=== PATIENT | female | born 1990 | race Caucasian/White ===

== ENCOUNTER 2017-09-21 06:47 | Inpatient (IN) | payer BC ==
[2017-09-21 07:50] VITALS: BMI 36.5
[2017-09-21] MEDS ORDERED: Ibuprofen 800 MG TAB PO PRN (08:48)
[2017-09-21] MEDS ORDERED: NS / Oxytocin 40 units/1000ml 1,000 ML IV PRN (08:48)
[2017-09-21] MEDS ORDERED: Lidocaine 1% (PF) 30 ML VIAL SC PRN (08:48)
[2017-09-21] MEDS ORDERED: HYDROcodone/Acetaminophen 5/325 mg Tablet PO PRN ×2 (08:48)
[2017-09-21] MEDS ORDERED: Ondansetron HCl/PF 4 MG/2 ML Vial IVP PRN ×2 (08:48→19:29)
[2017-09-21] MEDS ORDERED: Lactated Ringer's 1,000 ML IV SCH (09:00)
--- NOTE | 2017-09-21 09:04 | PDOC.LDHP ---
Labor and Delivery H&P Chief complaint: contractions HPI: Pt is a 27yo G1 @ 38.6 weeks who presents with regular contractions and cervical change from exam yesterday in the office. Current gestational age (weeks): 38 Due date: 09/29/17 Dating criteria: first trimester ultrasound Grav: 1 Para: 0 OB History Details: Femara and Metformin per ANI Current complications: other (baby in 80-90%tile) Abnormal US findings: Yes (80-90%tile) Current medications: pre- vitamins, other (Metformin 100mg QHS) Allergies/Adverse Reactions: Allergies Allergy/AdvReac Type Severity Reaction Status Date / Time Penicillins Allergy Intermediate Hives Verified 09/21/17 07:40 Social history: none - Physical Exam Vital signs reviewed and normal: yes General: breathing through contractions Heart: RRR Lungs: CTAB Extremeties: trace edema FHT: category 1 - Vaginal Exam cm dilated: 3 Effacement: 100% Station: -2 - OB Labs Blood type: O RH: negative Antibody Screen: negative HIV: negative RPR: negative HEPSAg: negative 1 hour GCT: positive 3 hour GTT: neg GBS: negative Urine drug screen: not done Rubella: immune - Assessment L&D Assessment: term patient in labor - Plan Plan: admit to L&D, labor augmentation if indicated, observation in L&D, informed consent obtained, anesthesia consult for pain management
[2017-09-21] MEDS ORDERED: DISCONTINUE ALL PREVIOUS NARCOTICS FS SCH (09:15)
[2017-09-21] MEDS ORDERED: Bupivacaine 0.5% 20 ML, fentaNYL Citrate/PF 400 MCG in Sodium Chloride 0.9% 72 ML EPIDURAL SCH (09:15)
[2017-09-21 09:57] LABS: Hemoglobin 13.1 g/dL (12.0-16.0); Mean Corpuscular HGB CONC 32.6 g/dL (32.0-36.0); Mean Corpuscular Hemoglobin 27.6 pg (27.0-31.0); Mean Corpuscular Volume 84.4 fl (81.0-99.0); Mean Platelet Volume 10.7 fL (7.4-10.4); Platelet Count 155 thou/uL (130-400); RBC Distribution Width 18.9 % (11.5-14.5); Red Blood Cell (RBC) Count 4.74 mill/uL (4.20-5.40); White Blood Cell (WBC) Count 10.1 thou/uL (4.8-10.8)
[2017-09-21 10:39] LABS: HBSAg Index 0.18 S/CO (0-0.99); Hep B Surf Ag Non-Reactive S/CO (NonReactive); Syphilis Antibody Nonreactive (Nonreactive)
[2017-09-21] MEDS ORDERED: diphenhydrAMINE 50 MG/ML VIAL IVP PRN (10:48)
[2017-09-21] MEDS ORDERED: Naloxone HCl 0.4 mg/ml Vial IVP PRN ×2 (10:48)
[2017-09-21] MEDS ORDERED: Eucerin (Mineral Oil/Petrolatum,White) 30 gm Jar TOP PRN (10:48)
[2017-09-21] MEDS ORDERED: Lactated Ringer's 500 ML IV PRN (10:48)
[2017-09-21] MEDS ORDERED: ePHEDrine/0.9% NaCl/PF SYRINGE 50 mg/10 ml SLOW IVP PRN (10:48)
[2017-09-21] MEDS ORDERED: Fentanyl 4mcg/Marcaine 0.1% Cassette 100 ML EPIDURAL SCH (11:00)
[2017-09-21] MEDS ORDERED: Communication Order-Pharmacy FS SCH (11:00)
[2017-09-21] MEDS ORDERED: Fentanyl 100 MCG/2 ML VIAL ONE (11:01)
[2017-09-21] MEDS: Lactated Ringer's 1,000 ML IV SCH ×3 (11:40→15:37)
[2017-09-21] MEDS ORDERED: NS / Oxytocin 40 units/1000ml 1,000 ML IV SCH (19:29)
[2017-09-21] MEDS ORDERED: Lanolin Ointment 7 GM TUBE TOP PRN (19:29)
[2017-09-21] MEDS ORDERED: Milk Of Magnesia 30 ML UDCUP PO PRN (19:29)
[2017-09-21] MEDS ORDERED: Benzocaine/Menthol 20-0.5% 60 ML CAN TOP PRN (19:29)
[2017-09-21] MEDS ORDERED: Bisacodyl 10 MG SUPP PR PRN (19:29)
[2017-09-21] MEDS ORDERED: Adacel (T-DAP) 0.5 ML VIAL IM ONE (19:29)
[2017-09-21] MEDS: HYDROcodone/Acetaminophen 5/325 mg Tablet PO PRN (19:39)
--- NOTE | 2017-09-21 20:25 | OP ---
DELIVERY NOTE DATE OF ENCOUNTER: 09/21/2017 The patient delivered a male on 09/21/2017 at 1649 hours by an uncomplicated term spontaneous vaginal delivery. Apgars were 9 and 9. weight is unavailable at time of dictation. There was a first-degree laceration repaired with a [id number] for hemostasis. Dr. Chaudhry is the [facility]. Counts were correct. Estimated blood loss was 200 mL. Mother and baby were stable in the immediate .
[2017-09-21] MEDS: Docusate Calcium (SURFAK) 240 MG CAP PO SCH (21:08)
[2017-09-22] MEDS: Ibuprofen 800 MG TAB PO SCH ×6 (00:04→22:00)
[2017-09-22 06:24] LABS: Hemoglobin 11.3 g/dL (12.0-16.0); Mean Corpuscular HGB CONC 33.2 g/dL (32.0-36.0); Mean Corpuscular Hemoglobin 28.3 pg (27.0-31.0); Mean Corpuscular Volume 85.1 fl (81.0-99.0); Mean Platelet Volume 9.8 fL (7.4-10.4); Platelet Count 129 thou/uL (130-400); RBC Distribution Width 18.8 % (11.5-14.5); Red Blood Cell (RBC) Count 4.01 mill/uL (4.20-5.40)
[2017-09-22] MEDS: Prenatal Vitamin 1 TAB PO SCH (08:37)
[2017-09-22] MEDS: Docusate Calcium (SURFAK) 240 MG CAP PO SCH ×2 (08:38→22:00)
[2017-09-22] MEDS: Ferrous Sulfate 325 MG TAB PO SCH ×2 (08:38→17:10)
--- NOTE | 2017-09-22 09:18 | PRG ---
DATE OF SERVICE: 09/22/2017 PROGRESS NOTE PRIMARY HYDRAULIC JACK OPERATOR: Dr. Abel Lares. SUBJECTIVE: The patient is a 27-year-old female day 1, status post a term spontaneous vag inal delivery. The patient reports she is tolerating p.o., voiding on her own, having decreased loch ia and good pain control. PHYSICAL EXAMINATION: VITAL SIGNS: Today, blood pressure is 120/69, temperature 97.7, pulse of 101, respiratory rate of 16 . GENERAL: The patient appears to be in no acute distress. She is alert and oriented, cooperative and pleasant to interact with. HEENT: Head, normocephalic, atraumatic. ABDOMEN: Fundus is firm at the umbilicus. EXTREMITIES: Nontender with symmetrical edema. LABORATORY DATA: Postdelivery hemoglobin is 11.3, hematocrit 34.1, platelets of 129,000. ASSESSMENT AND PLAN: The patient is day 1, status post a term spontaneous vaginal deliver y. Anticipate routine care. She was O negative blood, status post RhoGAM today. Anticip ate discharge tomorrow.
[2017-09-22] MEDS ORDERED: Witch Hazel-Glycerin 1 EACH JAR TOP SCH (14:15)
[2017-09-22] MEDS: HYDROcodone/Acetaminophen 5/325 mg Tablet PO PRN (17:11)
[2017-09-23] MEDS: HYDROcodone/Acetaminophen 5/325 mg Tablet PO PRN (05:54)
[2017-09-23] MEDS: Ibuprofen 800 MG TAB PO SCH (05:55)
--- NOTE | 2017-09-23 07:28 | PDOC.PP ---
Post Progress Note Post Day #: 2 PO intake tolerated: yes Flatus: yes Ambulation: yes Vital Signs (12 hours) Temp Pulse Resp BP Pulse Ox 09/22/17 20:07 97.8 F 85 20 141/79 H 99 Weight Weight 233 lb - Physical Examination General: NAD Cardiovascular: no m/r/g, RRR Respiratory: clear to auscultation bilaterally Abdominal: + bowel sounds, lochia Extremities: negative homans (B) Neurological: no gross focal deficits Psychiatric: A&Ox3, normal affect Result Diagrams: 09/22/17 06:09 Additional Labs: Post Labs Blood Type O NEGATIVE 09/21/17 09:43 Hep Bs Antigen Non-Reactive S/CO (NonReactive) 09/21/17 09:43 (1) Active labor at term Code(s): [id number] - Status: Acute - Assessment/Plan doing well dc post circumcision
[2017-09-23 08:59] VITALS: BP 136/68; TEMP 98.9
[2017-09-23] MEDS: Prenatal Vitamin 1 TAB PO SCH (09:23)
[2017-09-23] MEDS: Docusate Calcium (SURFAK) 240 MG CAP PO SCH (09:23)
[2017-09-23] MEDS: Ferrous Sulfate 325 MG TAB PO SCH (09:24)
== END 2017-09-23 12:15 | disposition home or self-care (01) | DRG 775 ==
LOC: L&D/OP 06:47 → L&D 10:04 → 3SW 20:54
PROVIDERS: ADMIT Obstetrics & Gynecology; ATTEND Obstetrics & Gynecology
PROC: 10E0XZZ Delivery of Products of Conception, External Approach (ICD-10-PCS; principal; 2017-09-21)
PROC: 0HQ9XZZ Repair Perineum Skin, External Approach (ICD-10-PCS; 2017-09-21)
DX: O70.0 First degree perineal laceration during delivery (principal); Z3A.38 38 weeks gestation of pregnancy; Z37.0 Single live birth
CPT/HCPCS: 36415; 51702; 85027; 85461; 86780; 86850; 86900; 86901; 87340; 90384; 96372; 99285; J2001; J3010; J3490; J7050

== ENCOUNTER 2019-05-15 21:10 | Inpatient (IN) | payer BC ==
--- NOTE | 2019-05-15 19:08 | PDOC.LDHP ---
Labor and Delivery H&P Chief complaint: scheduled induction (for elevated BP/ GHTN) HPI: Pt is a 29yo @ 37.6 weeks who has been monitoring BP at home with mild range BP noted and presented to clinic today with BP 140/90. No severe range BP at home or sx today. Current gestational age (weeks): 37 Due date: 05/30/19 Grav: 2 Para: 1 Current complications: gestational hypertension Abnormal US findings: No Current medications: pre- vitamins Previous surgical history: none Allergies/Adverse Reactions: Allergies Allergy/AdvReac Type Severity Reaction Status Date / Time Penicillins Allergy Intermediate Hives Verified 09/21/17 07:40 Social history: none - Physical Exam General: resting Heart: RRR Lungs: CTAB Abdomen: gravid Extremeties: no edema - OB Labs Blood type: O RH: negative Antibody Screen: negative HIV: negative RPR: negative HEPSAg: negative 1 hour GCT: positive 3 hour GTT: WNL GBS: negative Rubella: immune - Assessment L&D Assessment: medically indicated induction (GHTN) - Plan Plan: admit to L&D, cervical ripening, labor augmentation if indicated, informed consent obtained, anesthesia consult for pain management -: @ 37.6 weeks with GHTN, admit for IOL. Pt counseled on plan of care in the office as well as indication for magnesium IV if severe features noted in labor.
[2019-05-16] MEDS ORDERED: Misoprostol 100 MCG TAB VAG SCH ×2 (00:32)
[2019-05-16] MEDS ORDERED: hydrALAZINE 20 MG/ML VIAL SLOW IVP PRN ×2 (00:32→17:01)
[2019-05-16] MEDS ORDERED: NS / Oxytocin 40 units/1000ml 1,000 ML IV PRN (00:32)
[2019-05-16] MEDS ORDERED: HYDROcodone/Acetaminophen 5/325 mg Tablet PO PRN ×4 (00:32→17:01)
[2019-05-16] MEDS ORDERED: Butorphanol Tartrate 1 MG/ML VIAL SLOW IVP PRN (00:32)
[2019-05-16] MEDS ORDERED: Promethazine HCl 25 MG/ML VIAL IM PRN ×2 (00:32→13:17)
[2019-05-16] MEDS ORDERED: Acetaminophen 500 MG TAB PO PRN (00:32)
[2019-05-16] MEDS ORDERED: NS w/ Oxytocin 10 units 500 ML IV SCH (00:32)
[2019-05-16] MEDS ORDERED: Ibuprofen 800 MG TAB PO PRN (00:32)
[2019-05-16] MEDS ORDERED: Ondansetron PF 4 MG/2 ML Vial IVP PRN ×3 (00:32→17:01)
[2019-05-16] MEDS ORDERED: Lidocaine 1% (PF) 30 ML VIAL SC PRN (00:32)
[2019-05-16 00:44] VITALS: BMI 38.3
[2019-05-16 01:43] LABS: Hemoglobin 11.7 g/dL (12.0-16.0); Mean Corpuscular HGB CONC 32.5 g/dL (32.0-36.0); Mean Corpuscular Hemoglobin 25.6 pg (27.0-31.0); Mean Corpuscular Volume 78.7 fL (78.0-98.0); Mean Platelet Volume 11.3 fL (7.4-10.4); Platelet Count 170 thou/uL (130-400); RBC Distribution Width 24.1 % (11.5-14.5); Red Blood Cell (RBC) Count 4.57 mill/uL (4.20-5.40); White Blood Cell (WBC) Count 8.8 thou/uL (4.8-10.8)
[2019-05-16 01:53] LABS: ALT (SGPT) 10 U/L (8-55); AST (SGOT) 12 U/L (5-34); Albumin 3.4 g/dL (3.5-5.0); Alkaline Phosphatase 123 U/L (40-110); Anion Gap 14 mmol/L (10-20); BUN (Urea Nitrogen) 5 mg/dL (7.0-18.7); Bilirubin, Total 0.3 mg/dL (0.2-1.2); Calc. Creatinine Clearance 260 mL/min (70-130); Calcium 8.9 mg/dL (7.8-10.44); Carbon Dioxide 20 mmol/L (22-29); Chloride 107 mmol/L (98-107); Estimated GFR-MDRD Greater than 90; Glucose 142 mg/dL (70-105); Potassium 3.8 mmol/L (3.5-5.1); Protein, Total 6.4 g/dL (6.0-8.3); Sodium 137 mmol/L (136-145)
[2019-05-16 02:11] LABS: HBSAg Index 0.28 S/CO (0-0.99); Hep B Surf Ag Non-Reactive S/CO (NonReactive)
[2019-05-16] MEDS: Lactated Ringer's 1,000 ML IV SCH ×3 (05:51→11:38)
[2019-05-16 06:10] LABS: Syphilis Antibody Nonreactive (Nonreactive); Syphilis Antibody Index 0.08 S/CO (<1.00 Non-Reactive)
[2019-05-16] MEDS: NS w/ Oxytocin 10 units 500 ML IV SCH ×2 (09:30→10:24)
[2019-05-16] MEDS ORDERED: Fentanyl 4 mcg/Bup 0.1% Cadd 100 ML ONE (10:41)
[2019-05-16] MEDS ORDERED: Lidocaine 2% MPF 10 ML AMP (For Epidural Use) ONE (11:31)
--- NOTE | 2019-05-16 12:09 | PDOC.LDPN ---
Labor & Delivery Progress Note - Subjective Subjective: comfortable - Objective Vital signs reviewed and normal: yes General: resting Dilation: 1 Effacement: 25% Station: -2 FHT: category 1 AROM: clear fluid - Assessment (1) Gestational hypertension Code(s): O13.9 - GESTATIONAL HTN W/O SIGNIFICANT PROTEINURIA, UNSP TRIMESTER Current Visit: Yes Status: Acute (2) 38 weeks gestation of Code(s): Z3A.38 - 38 WEEKS GESTATION OF Current Visit: Yes Status : Acute Plan: continue plan of care
[2019-05-16] MEDS ORDERED: Naloxone HCl 0.4 mg/ml Vial IVP PRN ×2 (13:17)
[2019-05-16] MEDS ORDERED: ePHEDrine/0.9% NaCl/PF SYRINGE 50 mg/10 ml SLOW IVP PRN (13:17)
[2019-05-16] MEDS ORDERED: Acetaminophen 325 MG TAB PO PRN (13:17)
[2019-05-16] MEDS ORDERED: diphenhydrAMINE 50 MG/ML VIAL IVP PRN (13:17)
[2019-05-16] MEDS ORDERED: Lactated Ringer's 500 ML IV PRN (13:17)
[2019-05-16] MEDS ORDERED: Communication Order-Pharmacy FS SCH (13:30)
[2019-05-16] MEDS ORDERED: Fentanyl 4 mcg/Bupivacaine 0.1% Cassette 100 ML EPIDURAL SCH (13:30)
[2019-05-16] MEDS ORDERED: Misoprostol 200 MCG TAB ONE (16:23)
[2019-05-16] MEDS ORDERED: Methylergonovine 0.2 MG/ML VIAL ONE (16:23)
--- NOTE | 2019-05-16 16:27 | PDOC.OPDEL ---
OB Operative/Delivery Note Delivery Dr/Surgeon: Arnaud Pre-Delivery Diagnosis: medically indicated induction (GHTN) Procedure/Post Delivery Dx: spontaneous vaginal delivery Weeks gestation: 38 Anesthesia: epidural - Findings A Sex: female - 1 min: 9 - 5 min: 9 - Additional Findings/Plan Placenta delivered: spontaneous Repaired Obstetrical Laceration: periurethral Estimated blood loss: 350ml Compilations/Other Findings: atony- resolved w massage, methergine and cytotec DE Post delivery plan: routine recovery
[2019-05-16] MEDS ORDERED: Lanolin Ointment 7 GM TUBE TOP PRN (17:01)
[2019-05-16] MEDS ORDERED: Bisacodyl 10 MG SUPP PR PRN (17:01)
[2019-05-16] MEDS ORDERED: Preparation H Ointment 28 GM TUBE PR PRN (17:01)
[2019-05-16] MEDS ORDERED: Milk Of Magnesia 30 ML UDCUP PO PRN (17:01)
[2019-05-16] MEDS ORDERED: NS / Oxytocin 40 units/1000ml 1,000 ML IV SCH (17:01)
[2019-05-16] MEDS: Docusate Calcium (SURFAK) 240 MG CAP PO SCH (21:42)
[2019-05-16] MEDS: Ibuprofen 800 MG TAB PO SCH (21:42)
[2019-05-16] MEDS ORDERED: Benzocaine-Menthol 82.5 ML CAN TOP PRN (22:17)
[2019-05-17] MEDS: Ferrous Sulfate 325 MG TAB PO SCH ×3 (03:24→18:51)
[2019-05-17] MEDS: Ibuprofen 800 MG TAB PO SCH ×3 (05:39→21:23)
--- NOTE | 2019-05-17 05:40 | PDOC.PP ---
Post Progress Note Post Day #: 1 Subjective: . doing well, a little sore, but only needing motrin for control PO intake tolerated: yes Flatus: yes Ambulation: yes Vital Signs (12 hours) Temp Pulse Resp BP Pulse Ox 05/17/19 00:00 98.1 F 83 20 109/57 L 98 05/16/19 21:40 99.7 F H 05/16/19 20:30 100.4 F H 102 H 16 123/60 97 05/16/19 19:30 98.0 F 99 20 113/56 L 99 05/16/19 18:44 98.4 F 97 18 124/59 L Weight Weight 245 lb - Physical Examination General: NAD Respiratory: non-labored breathing Abdominal: lochia (minimal) Fundus firm & at: -1 Extremities: negative homans (B) Skin: no rash Neurological: no gross focal deficits Psychiatric: A&Ox3, normal affect Result Diagrams: 05/16/19 01:17 05/16/19 01:17 Additional Labs: Post Labs Blood Type O NEGATIVE 05/16/19 01:17 Hep Bs Antigen Non-Reactive S/CO (NonReactive) 05/16/19 01:17 - Assessment/Plan A: s/p following IOL for Preeclampsia P: discharge home today.
[2019-05-17] MEDS ORDERED: Adacel (T-DAP) 0.5 ML SYRINGE IM ONE (09:00)
[2019-05-17] MEDS: Prenatal Vitamin 1 TAB PO SCH (09:36)
[2019-05-17] MEDS: Docusate Calcium (SURFAK) 240 MG CAP PO SCH ×2 (09:36→21:23)
[2019-05-18] MEDS: Ibuprofen 800 MG TAB PO SCH ×2 (06:35→13:42)
[2019-05-18 09:05] VITALS: BP 121/57; TEMP 98.2
[2019-05-18] MEDS: Ferrous Sulfate 325 MG TAB PO SCH (09:18)
[2019-05-18] MEDS: Docusate Calcium (SURFAK) 240 MG CAP PO SCH (10:08)
[2019-05-18] MEDS: Prenatal Vitamin 1 TAB PO SCH (10:08)
--- NOTE | 2019-05-20 12:51 | DIS ---
DATE OF ADMISSION: 05/15/2019 DATE OF DISCHARGE: 05/18/2019 ADMITTING DIAGNOSES: 1. Intrauterine at 37 weeks and 6 days. 2. Gestational hypertension. 3. Induction of labor. DISCHARGE DIAGNOSES: 1. Intrauterine at 37 weeks and 6 days. 2. Gestational hypertension. 3. Induction of labor. PROCEDURE: Term spontaneous vaginal delivery. HOSPITAL COURSE: The patient is a 29-year-old G2, now P2 female, who presented to Labor and Delivery for scheduled induction of labor secondary to gestational hypertension at 37 weeks and 6 days. Her labor course was uncomplicated, resulting in a term spontaneous vaginal delivery complicated by atony, resolved sought with massage, methargen, and Cytotec. Her course was complicated with an elevated temperature on the night of day zero, that has resolved spontaneously and has not returned. Since then, she has not had another temperature. This morning is day, she is tolerating p.o., voiding on her own, having decreased lochia and good pain control. PHYSICAL EXAMINATION: VITAL SIGNS: This morning, blood pressure 119/56, temperature 97.5, pulse of 81, respiratory rate of 20, saturating 99% on room air. GENERAL: She appears to be in no acute distress. She is alert, oriented, cooperative, and pleasant to interact with. HEAD: Normocephalic, atraumatic. ABDOMEN: Fundus is firm, nontender, and at the umbilicus. EXTREMITIES: Nontender, nonedematous. The patient is being discharged to home with ibuprofen for pain control. She has been given instructions to seek medical attention with Dr. Lares in 6 weeks for routine visit or sooner if she experiences fever, increasing pain, or bleeding. The patient has been counseled to have pelvic rest for the next 6 weeks. Job ID: [id number]
== END 2019-05-18 16:00 | disposition home or self-care (01) | DRG 807 ==
LOC: L&D 23:58 → L&D-LIB 05-16 00:10 → 3SW 05-16 18:47
PROVIDERS: ADMIT Obstetrics & Gynecology; ATTEND Obstetrics & Gynecology
PROC: 10E0XZZ Delivery of Products of Conception, External Approach (ICD-10-PCS; principal; 2019-05-16)
PROC: 10907ZC Drainage of Amniotic Fluid, Therapeutic from Products of Conception, Via Natural or Artificial Opening (ICD-10-PCS; 2019-05-16)
PROC: 3E033VJ Introduction of Other Hormone into Peripheral Vein, Percutaneous Approach (ICD-10-PCS; 2019-05-16)
PROC: 0UQMXZZ Repair Vulva, External Approach (ICD-10-PCS; 2019-05-16)
DX: O13.4 Gestational [pregnancy-induced] hypertension without significant proteinuria, complicating childbirth (principal); Z37.0 Single live birth; Z3A.37 37 weeks gestation of pregnancy; O14.94 Unspecified pre-eclampsia, complicating childbirth; O75.89 Other specified complications of labor and delivery; O71.82 Other specified trauma to perineum and vulva
CPT/HCPCS: 36415; 36416; 80053; 85027; 85461; 86780; 86850; 86900; 86901; 87340; 90384; 96372; J2001; J2210; J2405; J2590